=== PATIENT | female | born 2000 | race Two or more races ===

== ENCOUNTER 2024-03-12 07:35 | Emergency (ER) | payer MEDICAID, OTHER ==
[~2024-03-12] VITALS: Ht 172.7 cm; Wt 92.5 kg
[2024-03-12 07:53] VITALS: BP 118/60; PULSE 80; RESP 18; TEMP 98.7; O2SAT 100
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
[2024-03-12] MEDS ORDERED: CYCL-839 PO (09:57)
[2024-03-12] MEDS ORDERED: IBU600T PO (09:57)
== END 2024-03-12 10:03 | disposition home or self-care (01) ==
LOC: ER 07:35
DX: S80.212A Abrasion, left knee, initial encounter (principal); T14.8XXA Other injury of unspecified body region, initial encounter; V47.5XXA Car driver injured in collision with fixed or stationary object in traffic accident, initial encounter; Y93.89 Activity, other specified; Y92.410 Unspecified street and highway as the place of occurrence of the external cause; Y99.8 Other external cause status
CPT/HCPCS: 71045; 73030; 73562; 81025